=== PATIENT | female | born 1975 ===

== ENCOUNTER 2017-02-04 20:31 | Emergency (ER) | payer OTHER ==
[2017-02-04 20:46] VITALS: BMI 42.2
--- NOTE | 2017-02-04 20:49 | PDOC ---
Attending Attestation - Resident Resident Name: Mira Sanders - ED Attending Attestation I have performed the following: I have examined & evaluated the patient, The case was reviewed & discussed with the resident, I agree w/resident's findings & plan, Exceptions are as noted - HPI HPI: 02/04/17 20:45 41 yo F bib A s/p episode of palpaitaitons which began 30 minutes prior to arrival no chest pain, no shortness of breath No prior episodes like this No recent travel No immobilization No fevers or chills No recent illness - Physicial Exam PE: 02/04/17 20:48 On examination: heart: tachy, regular, no murmur Lungs: CTA Peripheral: no lower extremity edema - Medical Decision Making 02/04/17 22:30 Laboratory Tests 02/04/17 02/04/17 02/04/17 20:53 20:53 20:53 WBC 6.9 Hgb 12.0 Hct 34.9 Plt Count 201 Sodium 137 Potassium 3.8 Chloride 104 Carbon Dioxide 22 BUN 10 Creatinine 0.9 Random Glucose 232 H Creatine Kinase 80 Troponin I < 0.02 B-Natriuretic Peptide 28.97 TSH 1.25 02/04/17 22:59 Pt remains tachycardiac HR 120-130 at rest Pt states she has no complaints of chest pain, shortness of breath or dizziness D dimer slightly elevated Will 1) continue bolus 2) Send for CT 3) Re assess Heart Score/ECG Review #1 ECG reviewed & interpreted by me at: 21:51 02/04/17 21:51 Twelve-lead EKG was performed and reviewed by me. There is normal sinus rhythm with a tachycardiac rate of 117 bpm. The axis is normal. The intervals are normal - pr:134ms, QRS:84ms, QTc:479ms. No ST elevations or depressions. T wave inversion III, no Q waves
--- NOTE | 2017-02-04 21:01 | PDOC ---
History of Present Illness - General Stated Complaint: DIZZINESS/BP PROBLEM Time Seen by Provider: 02/04/17 20:38 History Source: Patient Exam Limitations: No Limitations - History of Present Illness Initial Comments: This is a 41 year old female with unremarkable PMH who presents c/o palpitations , dizziness, and generalized weakness. She had an onset of palpitations (rapid and pounding) while sitting at home about 40 minutes [employer] [facility] to the ED. EMS was called and arrived on scene, finding her to be seemingly anxious and with heart rate 122 and blood pressure 182/110. The patient states that her pounding heart rate continues but she is feeling progressively better here in the ED. She notes that recently she has felt hotter than normal, but denies any recent measured fever, chills, nausea, vomiting, diarrhea, cough, sore throat, chest pain, shortness of breath, headache, vision changes, leg swelling, or other symptoms. This has never happened to her before. She notes having taken one aspirin 325 mg tablet (swallowed, not chewed) after the onset. Past History - Past Medical History Allergies/Adverse Reactions: Allergies Allergy/AdvReac Type Severity Reaction Status Date / Time No Known Allergies Allergy Verified 02/04/17 20:44 Home Medications: Ambulatory Orders NK [No Known Home Medication] 02/04/17 Review of Systems - Review of Systems Able to Perform ROS?: Yes Constitutional: Yes: Weakness. No: Chills, Fever, Unexplained wgt Loss HEENTM: No: Nose Congestion, Throat Pain Respiratory: No: Cough, Shortness of Breath Cardiac (ROS): Yes: Palpitations. No: Chest Pain, Edema, Syncope ABD/GI: No: Constipated, Diarrhea, Nausea, Vomiting : No: Burning, Dysuria Musculoskeletal: No: Back Pain, Neck Pain Integumentary: No: Bruising, Rash Neurological: Yes: Dizziness. No: Headache, Numbness, Tingling, Weakness Endocrine: No: Unexplained Weight Gain, Unexplained Weight Loss *Physical Exam - Vital Signs Last Vital Signs Temp Pulse Resp BP Pulse Ox 98.1 F 100 H 18 132/83 100 02/05/17 01:09 02/05/17 01:02/05/17 01:02/05/17 01:02/05/17 01:09 - Physical Exam General Appearance: Yes: Nourished, Appropriately Dressed, Obese, Other ( pleasant and appropriately acting middle age woman accompanied by family, appears comfortable, minimally anxious). No: Apparent Distress HEENT: positive: EOMI, Normal Voice, Hearing Grossly Normal. negative: Scleral Icterus (R), Scleral Icterus (L), Nasal Congestion Neck: positive: Trachea midline, Supple. negative: Tender, Rigid Respiratory/Chest: positive: Lungs Clear, Normal Breath Sounds. negative: Respiratory Distress, Crackles, Rhonchi, Stridor, Wheezing Cardiovascular: positive: Regular Rhythm, Tachycardia. negative: Edema, Murmur Gastrointestinal/Abdominal: positive: Normal Bowel Sounds, Soft, Protuberent. negative: Tender, Organomegaly, Pulsatile Mass, Guarding Musculoskeletal: positive: Normal Inspection. negative: Decreased Range of Motion, Vertebral Tenderness Extremity: positive: Normal Capillary Refill, Normal Inspection, Normal Range of Motion. negative: Tender, Cyanosis Integumentary: positive: Normal Color, Dry, Warm. negative: Erythema, Rash, Bruising Neurologic: positive: surgical specialist II-XII NML intact, Fully Oriented, Alert, Normal Mood/ Affect, Normal Response, Motor Strength 5/5, Other (Pt seen ambulating to bathroom with normal gait) Heart Score/ECG Review - History History: Slightly suspicious - Electrocardiogram EKG: Non specific repolarization disturbance - Age Age: </= 45 - Risk Factors Risk Factors Heart Score: Yes Hx Obesity Based on the list above the patient has:: 1-2 risk factors - Troponin Troponin: </= normal limit - Score Heart Score - Total: 2 #1 Sinus tahcycardia, rate of 100, flipped T wave in III ED Treatment Course - LABORATORY CBC & Chemistry Diagram: 02/04/17 20:53 02/04/17 20:53 - ADDITIONAL ORDERS Additional order review: 02/04/17 21:19 Urine Culture - Final Urine - Urine Clean Catch NO GROWTH OBTAINED 02/04/17 20:53 RBC 4.11 MCV 85.0 MCHC 34.3 RDW 14.3 MPV 9.9 Neutrophils % 68.5 Lymphocytes % 24.1 Monocytes % 6.3 Eosinophils % 0.8 Basophils % 0.3 - RADIOLOGY Radiology Studies Ordered: Category Date Time Status CHEST X-RAY PORTABLE* [RAD] Stat Radiology 02/04/17 20:48 Completed Chest X-Ray Result: No Infiltrates, Other (no acute cardiopulmonary processes) - Medications Given in the ED: ED Medications Discontinued Medications Generic Name Dose Route Start Last Admin Trade Name Bart PRN Reason Stop Dose Admin Sodium Chloride 1,000 mls @ 500 mls/hr 02/04/17 21:50 02/04/17 22:01 Normal Saline - IV 02/04/17 23:49 500 mls/hr ASDIR STA Administration Lorazepam 0.5 mg 02/05/17 00:52 02/05/17 01:08 Ativan Injection - IVPUSH 02/05/17 00:53 0.5 mg ONCE ONE Administration Medical Decision Making - Medical Decision Making 41 yof without significant PMH was BIBA for rapid palpitations, generalized weakness, dizziness. States symptoms are improving and heart rate decreases to about 100 within 10 minutes of arrival to ED without intervention. DDX includes paroxysmal SVT, ACS, PE, infection (UTI, PNA, etc), thyroid disorder. Ordered is cardiac order set, BNP, UA with cx, TSH. Cardiac enzymes negative, EKG unremarkable other than sinus tach. CXR unremarkable. UA unremarkable. Pt's tachycardia is slowly resolving. D-dimer is pending, patient's case signed out to oncoming resident Dr. Schultz. *DC/Admit/Observation/Transfer Diagnosis at time of Disposition: Tachycardia - Discharge Dispostion Disposition: HOME Condition at time of disposition: Improved - Patient Instructions Additional Instructions: Please return to the ER if you experience concerning or worsening symptoms. Your symptoms are likely due to a combination of anxiety and dehydration. Please maintain good fluid intake and follow up with your primary care provider to discuss your ER visit.
[2017-02-04 21:32] LABS: BASOPHIL 0.3 % (0-2.0); EOSINOPHIL 0.8 % (0-4.5); MCH 29.2 pg (25.7-33.7); MCHC 34.3 g/dl (32.0-36.0); MEAN PLT VOLUME 9.9 fl (7.5-11.1); NEUTROPHILS 68.5 % (42.8-82.8); PLATELET COUNT 201 K/MM3 (134-434); RDW 14.3 % (11.6-15.6); WHITE BLOOD COUNT 6.9 K/mm3 (4.0-10.0)
[2017-02-04 21:40] LABS: URINE APPEARANCE CLEAR; URINE BILIRUBIN NEGATIVE (NEGATIVE); URINE BLOOD NEGATIVE (NEGATIVE); URINE COLOR STRAW; URINE GLUCOSE (UA) NEGATIVE (NEGATIVE); URINE KETONE NEGATIVE (NEGATIVE); URINE LEUK ESTERASE NEGATIVE (NEGATIVE); URINE NITRITE NEGATIVE (NEGATIVE); URINE PROTEIN NEGATIVE (NEGATIVE); URINE UROBILINOGEN NEGATIVE mg/dL (0.2-1.0)
[2017-02-04 21:45] LABS: INR 0.98 (0.82-1.09); PROTHROMBIN TIME (PATIENT) 10.8 SEC (9.98-11.88)
[2017-02-04] MEDS ORDERED: SODIUM CHLORIDE 1,000 ML IV STA (21:50)
--- NOTE | 2017-02-04 22:13 | PDOC ---
*Physical Exam - Vital Signs Last Vital Signs Temp Pulse Resp BP Pulse Ox 98.0 F 114 H 14 157/83 100 02/04/17 20:44 02/04/17 20:44 02/04/17 20:44 02/04/17 20:44 02/04/17 20:44 - Physical Exam Comments: 02/04/17 22:12 General Appearance: Nourished. No Apparent Distress HEENT: No Pharyngeal Erythema, Tonsillar Exudate, Tonsillar Erythema Respiratory/Chest: Lungs Clear, Normal Breath Sounds. No Crackles, Rales, Rhonchi, Wheezing Cardiovascular: Regular Rhythm, Regular Rate. No Murmur, Gallop/S3, Gallop/S4 Gastrointestinal/Abdominal: Normal Bowel Sounds, Soft. No Guarding, Rebound, Tenderness Extremity: Normal Capillary Refill Integumentary: Normal Color, Dry, Warm Neurologic: Fully Oriented, Alert, Normal Mood/Affect, Normal Response ED Treatment Course - LABORATORY CBC & Chemistry Diagram: 02/04/17 20:53 02/04/17 20:53 - ADDITIONAL ORDERS Additional order review: Laboratory Results 02/04/17 02/04/17 02/04/17 21:19 21:19 20:53 INR 0.98 Urine Color Straw Urine Appearance Clear Urine pH 6.0 Urine Protein Negative Urine Glucose (UA) Negative Urine Ketones Negative Urine Blood Negative Urine Nitrite Negative Urine Bilirubin Negative Urine Urobilinogen Negative Ur Leukocyte Esterase Negative Urine HCG, Qual Negative 02/04/17 20:53 RBC 4.11 MCV 85.0 MCHC 34.3 RDW 14.3 MPV 9.9 Neutrophils % 68.5 Lymphocytes % 24.1 Monocytes % 6.3 Eosinophils % 0.8 Basophils % 0.3 Progress Note - Progress Note Progress Note: Received sign out from Dr. Sanders. The patient is a previously healthy 41 year old female with no PMH who presents with dizziness and palpitations. Patient reports acute onset of a "racing heart" sensation earlier this evening prompting her to call EMS. She took a 325mg baby aspirin and was noted to be tachycardic and hypertensive en route. Work up has been negative thus far pending cmp, troponin, tsh, bnp. If bnp is normal can consider fluid bolus. Anticipated discharge home if labs are negative. Medical Decision Making - Medical Decision Making 02/04/17 22:35 CMP, BNP, TSH, troponin are negative. The patient's symptoms are likely due to dehydration. We will give her a fluid bolus here in the ED. We will also add on a d-dimer to evaluate for PE. 02/05/17 00:27 D-dimer is elevated mildly. We will obtain a CT Pa to evaluate for PE. 02/05/17 00:27 CT Pa is negative for PE. We will recheck vitals. 02/05/17 01:46 Improved tachycardia to 100 after fluid bolus and 0.5 of ativan. The patient's symptoms are likely due to a combination of dehydration and anxiety. We feel comfortable discharging the patient at this time with follow up with her primary care provider. We discussed the results with the patient and her family and they voiced understanding and are agreeable with the plan. *DC/Admit/Observation/Transfer Diagnosis at time of Disposition: Anxiety, Dehydration - Discharge Dispostion Disposition: HOME Condition at time of disposition: Improved Admit: No - Patient Instructions Printed Discharge Instructions: DI for Anxiety -- Adult, DI for Dehydration -- Adult Additional Instructions: Please return to the ER if you experience concerning or worsening symptoms. Your symptoms are likely due to a combination of anxiety and dehydration. Please maintain good fluid intake and follow up with your primary care provider to discuss your ER visit.
[2017-02-04 22:19] LABS: ALBUMIN 3.6 g/dl (3.4-5.0); ANION GAP 11 (8-16); CALCIUM 8.4 mg/dL (8.5-10.1); CO2 22 mmol/L (21-32); CREATININE 0.9 mg/dL (0.55-1.02); GLUCOSE,RANDOM 232 mg/dL (74-106); SGOT/AST 11 U/L (15-37); SGPT/ALT 20 U/L (12-78); TOT PROT 7.4 g/dl (6.4-8.2)
[2017-02-04 22:22] LABS: ALK PHOS 78 U/L (45-117); BILIRUBIN,TOTAL 0.4 mg/dL (0.2-1.0); CPK 80 IU/L (26-192); TROPONIN I < 0.02 ng/ml (0.00-0.05)
[2017-02-05] MEDS ORDERED: LORazepam 2 MG/ML SDV VIAL ONE (01:01)
[2017-02-05 01:10] VITALS: BP 132/83; PULSE 100; TEMP 98.1
--- NOTE | 2017-02-05 12:19 | EKG ---
Test Reason : Blood Pressure : / mmHG Vent. Rate : 117 BPM Atrial Rate : 117 BPM P-R Int : 132 ms QRS Dur : 084 ms QT Int : 350 ms P-R-T Axes : 057 -01 027 degrees QTc Int : 488 ms SINUS TACHYCARDIA MINIMAL VOLTAGE CRITERIA FOR LVH, MAY BE NORMAL VARIANT BORDERLINE ECG NO PREVIOUS ECGS AVAILABLE Confirmed by JULIA VERDUZCO MD ([id number]) on 02/05/2017 12:18:54 PM Referred By: Confirmed By:JULIA VERDUZCO MD
== END 2017-02-05 02:05 | disposition home or self-care (01) ==
LOC: JER 20:31
PROC: 3E033NZ Introduction of Analgesics, Hypnotics, Sedatives into Peripheral Vein, Percutaneous Approach (ICD-10-PCS; principal; 2017-02-04)
PROC: 3E0337Z Introduction of Electrolytic and Water Balance Substance into Peripheral Vein, Percutaneous Approach (ICD-10-PCS; 2017-02-04)
DX: R00.0 Tachycardia, unspecified (principal)
CPT/HCPCS: 36415; 71010-TC; 71275-TC; 80053; 81003; 83735; 83880; 84443; 84484; 84703; 85025; 85379; 85610; 87086; 93005; 93010; 99284-25